=== PATIENT | female | born 1995 | race African-American/Black ===

== ENCOUNTER 2017-02-27 14:43 | Emergency (ER) | payer SELFPAY ==
[2017-02-27 15:13] VITALS: BP 122/74
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
== END 2017-02-27 16:40 | disposition home or self-care (01) ==
LOC: ER 14:43
DX: S00.83XA Contusion of other part of head, initial encounter (principal); S05.12XA Contusion of eyeball and orbital tissues, left eye, initial encounter; Y04.0XXA Assault by unarmed brawl or fight, initial encounter
CPT/HCPCS: 70486; 99283